=== PATIENT | male | born 2000 | race African-American/Black ===

== ENCOUNTER 2019-02-13 16:24 | Emergency (ER) | payer BC ==
[~2019-02-13] VITALS: Ht 175.3 cm; Wt 65.9 kg
[2019-02-13 16:29] VITALS: BP 124/67
[2019-02-13] MEDS ORDERED: AMOXICILLIN 50500 MG PO (16:51)
[2019-02-13 17:12] LABS: STREP SCREEN NEGATIVE
[2019-02-13 17:21] VITALS: PULSE 93; TEMP 98.8
== END 2019-02-13 17:19 | disposition home or self-care (01) ==
LOC: COL.ER 16:24
PROVIDERS: Physician Assistant
DX: J02.9 Acute pharyngitis, unspecified (principal)